=== PATIENT | female | born 1950 | race Caucasian/White ===

== ENCOUNTER 2016-02-28 10:19 | Emergency (ER) | payer MEDICARE, BC ==
[2016-02-28 10:39] VITALS: TEMP 97.8; BMI 39.5
--- NOTE | 2016-02-28 10:55 | EDPRACDOC ---
- General Information Chief Complaint: Fall Stated Complaint: FALL,EYE INJURY Time Seen by Provider: 02/28/16 10:47 Information Source: Patient Mode Of Arrival: Car Home Medications: Home Medications Levothyroxine [Synthroid, Levoxyl] 100 mcg PO MOTUWETHFRSA 09/13/12 Vitamin B Complex with C [Nephro-Guilherme] 1 tab PO DAILY 09/13/12 Cholecalciferol (Vitamin D3) [Vitamin D-3] 2,000 unit PO DAILY 03/30/13 Pantoprazole Sodium [Protonix] 40 mg PO DAILY 03/30/13 Furosemide 20 mg PO DAILY PRN 04/12/13 Amiodarone HCl [Pacerone] 100 mg PO DAILY 04/22/14 Insulin Glargine [Lantus Pen] 22 units SQ HS 04/22/14 Warfarin Sodium [Coumadin] 7.5 mg PO TH 04/22/14 Warfarin Sodium [Coumadin] 10 mg PO SUMOTUWEFRSA 04/22/14 Atorvastatin Calcium [Lipitor] 20 mg PO DAILY 02/28/16 Duloxetine HCl [Cymbalta] 60 mg PO DAILY 02/28/16 Insulin Aspart [Novolog] 0 units SQ .SSI 02/28/16 Levothyroxine [Synthroid, Levoxyl] 200 mcg PO CARCAMO 02/28/16 Meclizine HCl 25 mg PO BID 02/28/16 Allergies/Adverse Reactions: Allergies Allergy/AdvReac Type Severity Reaction Status Date / Time Penicillins Allergy Severe Angioedema* Verified 02/28/16 10:35 cephalexin monohydrate Allergy Edema-Oral/ Verified 02/28/16 10:35 [From Keflex] Lip clarithromycin [From Biaxin] Allergy Rash-Genera Verified 02/28/16 10:35 lized Sulfa (Sulfonamide Allergy Unknown Verified 02/28/16 10:35 Antibiotics) MYCIN Allergy Rash-Genera Uncoded 02/28/16 10:35 lized - History of Present Illness Onset: YESTERDAY 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 PT WAS AT DIALYSIS TODAY, COMPLAINED OF HEADACHE, THEY REFERRED HER TO THE ED FOR FURTHER EVALUATION, PT IS ON COUMADIN. Location: Reports: Parietal Pain Quality: Reports: Mild Modifying Factors: Denies: Medication, Exposure to light, Cold therapy, Immobilization, Movement, Rest Prior work up: Denies: NO, O, CT, LP, MRI, Neurologist Relevant History of: Reports: None Associated Signs and Symptoms: Reports: Facial Pain. Denies: Confusion, Fatigue , Fever/Chills, Flushing, Loss of Consciousness, Nausea/Vomiting, Nasal Congestion, Nasal Drainage, Numbness in Legs/Feet, Rash, Seizures, Sinus Infection, Stiff Neck, Vision Changes, Weakness ED Past Medical History - History Reviewed Yes Nurses notes reviewed and agree except as marked - Patient Medical History Neurological History: Reports: Cerebrovascular Accident (1999) Cardiac History: Reports: Hypertension, Congestive Heart Failure GI/ History: Reports: Renal Failure (DIALYSIS MWF) Psychological History: Reports: Depression Systemic History: Reports: Cancer (BREAST), Diabetes Surgical History: Reports: Other (MASTECTOMY, AV FISTULA) - Family Medical History Reports: Diabetes - Social Medical History Smoking Status: Former smoker ETOH: None Substance Abuse: None EDM Review of Systems - Review of Systems Constitutional: negative: Chills, Fever Eyes: negative: Blurred Vision, Double Vision, Vision Loss Ears: negative: Drainage Throat: negative: Pain Nose: negative: Bleeding Respiratory: negative: Cough, Shortness of Breath, Wheezing Cardiovascular: negative: Chest Pain, Palpitations Gastrointestinal: negative: Diarrhea, Nausea, Pain, Vomiting Genitourinary: negative: Dysuria, Frequency Neurological: Headache. negative: Dizziness, Numbness, Weakness Musculoskeletal: No Symptoms Reported Integumentary: No Symptoms Reported - Physical Exam Constitutional: Alert (Awake), No apparent distress Oriented to: Time, Person, Place Last recorded Vital Signs: Last Vital Signs Temp 97.8 F 02/28/16 10:35 Pulse 74 02/28/16 10:35 Resp 18 02/28/16 10:35 BP 125/58 L 02/28/16 10:35 Pulse Ox 94 02/28/16 10:35 Oxygen Pulse Oxygen Saturation 94 O2 Device Room Air Oxygen Flow Rate Fraction of Inspired Oxygen ( FIO2) - HEENT Head: Normal ( normocephalic) Eye Exam: Other (SWELLING AND BRUISING RIGHT EYE) Oropharynx: Normal (Pharynx:Moist without exudate,Gums-no swelling) Tympanic Membrane: Normal ENT EAC: Normal TMJ: Normal Nose: No Symptoms Reported (septum midline) Neck: Normal (FROM, trachea at midline) - Respiratory/Cardiovascular Respiratory: Normal - CTA (BBS clear to auscultation without adventitious sounds ) Cardiovascular: Normal (RRR without murmur, gallop or rub) - GI Auscultation: Normal (NABS) Palpation: Normal (Soft,No rebound or guarding, non distended) Tenderness: Non tender Wiley's Sign: Negative - Musculoskeletal Back: Normal (Non-Tender) Extremities: Normal (Normal tone, Pulses 2+ No cyanosis or edema, FROM) - Integumentary Skin: Normal, Warm, Dry Lymphatics: Normal (no adenopathy) - Neurologic Memory Impaired: Normal Motor Function: Normal (Normal tone, Pulses 2+ No cyanosis or edema, FROM) Cranial Nerve: Normal (CN II-X11 intact sensation, strength 5/5) Cerebellar: Normal Mood Description: Normal Perception: Normal - Differential Diagnosis Closed Head Injury, Contusion, Fracture, Other Bone, ICH, SDH - Diagnostic Imaging CT HEAD/FACE Image interpreted by: Radiologist Diagnostic Imaging Comments: CT HEAD WITHOUT CONTRAST CT MAXILLOFACIAL WITHOUT CONTRAST TECHNIQUE: Multidetector CT imaging of the head and maxillofacial structures were performed using the standard protocol without intravenous contrast. Multiplanar CT image reconstructions of the maxillofacial structures were also generated. COMPARISON: 04/12/2013 FINDINGS: CT HEAD FINDINGS Remote infarct involving the left caudate head, anterior limb left internal capsule, and adjacent periventricular white matter, no change from 04/12/2013. Periventricular white matter and nugent radiata hypodensities favor chronic ischemic microvascular white matter disease. Otherwise, the brainstem, cerebellum, cerebral peduncles, thalami, basal ganglia, basilar cisterns, and ventricular system appear within normal limits. No intracranial hemorrhage, mass lesion, or acute CVA. Mild right mastoid effusion. Mild chronic ethmoid sinusitis. There is atherosclerotic calcification of the cavernous carotid arteries bilaterally. CT MAXILLOFACIAL FINDINGS Chronic left maxillary sinusitis with an accompanying air-fluid level. Mild chronic sphenoid sinusitis. There is right periorbital hematoma/soft tissue swelling without postseptal extension. No significant intra orbital abnormality identified. Globes appear symmetric. No acute facial fracture is identified. Considerable maxillary dental disease noted including a cavity of an partially erupted left third molar and periapical lucencies of teeth 8, 7, 6, and 5 which are confluent, and periapical lucency involving teeth 10 and 11. Other dental cavities are present along the maxillary teeth. Scattered small internal jugular lymph nodes are present in the upper neck. IMPRESSION: 1. No facial fracture or acute intracranial findings. The patient does have notable right periorbital hematoma/soft tissue swelling, without intraorbital extension. 2. Considerable maxillary dental disease noted with cavities and periapical lucencies. 3. Acute on chronic left maxillary sinusitis with mild chronic ethmoid sinusitis. 4. Remote infarct involving the left caudate head, anterior limb left internal capsule, and adjacent periventricular white matter, no change from 2014. 5. Periventricular white matter and nugent radiata hypodensities favor chronic ischemic microvascular white matter disease. 6. Mild right mastoid effusion. Decision Time to Discharge: 13:06 - Departure Disposition: Home Condition: Stable Final Diagnosis: Periorbital hematoma of right eye, Accidental fall Instructions: RICE: Routine Care for Injuries Education/Counseling Given To: Patient Education/Counseling Given Regarding: Diagnosis, Treatment, Prognosis, Follow Up Referrals: Marii Cabrera MD [Primary Care Provider] - One Week Additional Instructions: APPLY COLD COMPRESSES NEEDED FOR PAIN OR SWELLING, RETURN TO THE ED FOR ANY WORSENING SYMPTOMS OR CONCERNS.
--- NOTE | 2016-02-28 12:16 | DIRPT ---
CLINICAL DATA: Fall yesterday striking the right orbital region on a table. Pain in the right orbit with some periorbital swelling and bruising. History of breast cancer 6 years ago. EXAM: CT HEAD WITHOUT CONTRAST CT MAXILLOFACIAL WITHOUT CONTRAST TECHNIQUE: Multidetector CT imaging of the head and maxillofacial structures were performed using the standard protocol without intravenous contrast. Multiplanar CT image reconstructions of the maxillofacial structures were also generated. COMPARISON: 04/12/2013 FINDINGS: CT HEAD FINDINGS Remote infarct involving the left caudate head, anterior limb left internal capsule, and adjacent periventricular white matter, no change from 04/12/2013. Periventricular white matter and nugent radiata hypodensities favor chronic ischemic microvascular white matter disease. Otherwise, the brainstem, cerebellum, cerebral peduncles, thalami, basal ganglia, basilar cisterns, and ventricular system appear within normal limits. No intracranial hemorrhage, mass lesion, or acute CVA. Mild right mastoid effusion. Mild chronic ethmoid sinusitis. There is atherosclerotic calcification of the cavernous carotid arteries bilaterally. CT MAXILLOFACIAL FINDINGS Chronic left maxillary sinusitis with an accompanying air-fluid level. Mild chronic sphenoid sinusitis. There is right periorbital hematoma/soft tissue swelling without postseptal extension. No significant intra orbital abnormality identified. Globes appear symmetric. No acute facial fracture is identified. Considerable maxillary dental disease noted including a cavity of an partially erupted left third molar and periapical lucencies of teeth 8, 7, 6, and 5 which are confluent, and periapical lucency involving teeth 10 and 11. Other dental cavities are present along the maxillary teeth. Scattered small internal jugular lymph nodes are present in the upper neck. IMPRESSION: 1. No facial fracture or acute intracranial findings. The patient does have notable right periorbital hematoma/soft tissue swelling, without intraorbital extension. 2. Considerable maxillary dental disease noted with cavities and periapical lucencies. 3. Acute on chronic left maxillary sinusitis with mild chronic ethmoid sinusitis. 4. Remote infarct involving the left caudate head, anterior limb left internal capsule, and adjacent periventricular white matter, no change from 2013. 5. Periventricular white matter and nugent radiata hypodensities favor chronic ischemic microvascular white matter disease. 6. Mild right mastoid effusion. Electronically Signed By: Bala Mosley M.D. On: 02/28/2016 12:13
[2016-02-28 13:38] VITALS: BP 137/67; PULSE 71
== END 2016-02-28 13:37 | disposition home or self-care (01) ==
LOC: ED 10:19
DX: S00.11XA Contusion of right eyelid and periocular area, initial encounter (principal); W01.190A Fall on same level from slipping, tripping and stumbling with subsequent striking against furniture, initial encounter; I12.9 Hypertensive chronic kidney disease with stage 1 through stage 4 chronic kidney disease, or unspecified chronic kidney disease; N18.9 Chronic kidney disease, unspecified; I50.9 Heart failure, unspecified; E11.9 Type 2 diabetes mellitus without complications; Z86.73 Personal history of transient ischemic attack (TIA), and cerebral infarction without residual deficits; Z79.01 Long term (current) use of anticoagulants; Z79.4 Long term (current) use of insulin; Z79.899 Other long term (current) drug therapy
CPT/HCPCS: 36415; 70450; 70486; 99284